=== PATIENT | male | born 1940 | race Caucasian/White ===

== ENCOUNTER 2024-12-29 18:43 | Emergency (ER) | payer MEDICARE ==
[2024-12-29] MEDS: Lidocaine 1% 10 ML MDV INJECT ONE (18:57)
== END 2024-12-29 20:18 | disposition home or self-care (01) ==
LOC: VM.ED 18:43
DX: S01.01XA Laceration without foreign body of scalp, initial encounter (principal); W18.30XA Fall on same level, unspecified, initial encounter
CPT/HCPCS: 12001; 70450; 72125; 99283; J2003; 99284